=== PATIENT | female | born 1995 | race Caucasian/White ===

== ENCOUNTER 2017-12-16 19:51 | Emergency (ER) | payer MEDICAID ==
[~2017-12-16] VITALS: Ht 157.5 cm; Wt 42.7 kg
[~2017-12-16 19:51] MED LIST: AMOXICILLIN 8751 TAB PO; IBU600 MG PO; MACROBID 1100 MG/CAP PO; NO HOME MEDICATIONS; PRENATAL1 TA7 PO
[2017-12-16 19:55] VITALS: BP 142/87; TEMP 98.4
[2017-12-16] MEDS ORDERED: NORCO 325 MG-51 TAB PO (21:01)
[2017-12-16 21:09] VITALS: PULSE 90
== END 2017-12-16 21:09 | disposition home or self-care (01) ==
LOC: COL.ER 19:51
DX: K08.89 Other specified disorders of teeth and supporting structures (principal); Z87.891 Personal history of nicotine dependence

== ENCOUNTER 2018-03-13 12:41 | Emergency (ER) | payer MEDICAID ==
[~2018-03-13] VITALS: Ht 157.5 cm; Wt 40.9 kg
[~2018-03-13 12:41] MED LIST changes: +NORCO 325 MG-51 TAB PO
[2018-03-13 12:49] VITALS: BP 153/85; PULSE 99; TEMP 98.7
[2018-03-13] MEDS ORDERED: MIRENA52 MG IY (12:51)
[2018-03-13] MEDS ORDERED: DOXYCYCLINE HY100 MG PO (13:24)
== END 2018-03-13 13:34 | disposition home or self-care (01) ==
LOC: COL.ER 12:41
DX: R21 Rash and other nonspecific skin eruption (principal)

== ENCOUNTER 2019-04-10 20:04 | Emergency (ER) | payer MEDICAID ==
[~2019-04-10] VITALS: Ht 157.5 cm; Wt 45.9 kg
[~2019-04-10 20:04] MED LIST changes: +DOXYCYCLINE HY100 MG PO; +MIRENA52 MG IY
[2019-04-10 20:08] VITALS: TEMP 98.8
[2019-04-10 20:34] LABS: BASO # 0.1 (0.0-0.2); BASO % 0.7 % (0.0-2.0); EOS # 0.1 (0.0-0.7); EOS % 0.7 % (0-4.0); GRAN % 61.5 % (42.2-75.2); HEMATOCRIT 39.3 % (37.0-47.0); LYMPH # 2.5 (1.2-3.4); MEAN CELL VOLUME 92 fl (80.0-100.0); MEAN CORPUSCULAR HEMOGLOBIN 30 pg (27.0-31.0); MEAN CORPUSCULAR HGB CONC 33 g/dl (33.0-37.0); MONO # 0.5 (0.1-0.6); MONO % 5.9 % (1.7-9.3); PLATELET COUNT 252 K/mm3 (130-400); RED BLOOD COUNT 4.29 M/mm3 (4.10-5.30); REDCELL DISTRIBUTION WIDTH-CV 12.6 % (11.5-14.5)
[2019-04-10 20:43] LABS: ALANINE AMINOTRANSFERASE 7 U/L (9-52); ALBUMIN 4.5 gm/dL (3.5-5.0); ALKALINE PHOSPHATASE 49 U/L (50-136); ANION GAP 9 mmol/L (7-16); AST,SGOT 20 U/L (15-37); BILIRUBIN,TOTAL 0.4 mg/dL (0.0-1.0); BLOOD UREA NITROGEN 13 mg/dL (7-17); CARBON DIOXIDE 24 mmol/L (22-30); CHLORIDE 107 mmol/L (98-107); CREATININE, serum 0.62 (0.52-1.25); GLUCOSE 84 mg/dL (74-106); POTASSIUM 3.9 mmol/L (3.4-5.0); SODIUM 141 mmol/L (137-145); TOTAL PROTEIN 7.8 gm/dL (6.4-8.2)
[2019-04-10 20:45] LABS: TRICYCLIC ANTIDEPRESS URINE NEGATIVE
[2019-04-10 20:47] LABS: ACETAMINOPHEN < 10 ug/mL (10-30); ALCOHOL(ethanol),MEDICAL < 10 mg/dL; SALICYLATE < 1.0 mg/dL
[2019-04-11 13:45] VITALS: BP 100/66; PULSE 71
== END 2019-04-11 13:51 ==
LOC: COL.ER 20:04
PROVIDERS: Emergency Medicine
DX: F32.9 Major depressive disorder, single episode, unspecified (principal); F17.210 Nicotine dependence, cigarettes, uncomplicated; F41.9 Anxiety disorder, unspecified

== ENCOUNTER 2019-05-10 20:59 | Emergency (ER) | payer MEDICAID ==
[~2019-05-10] VITALS: Ht 157.5 cm; Wt 45.0 kg
[2019-05-10 21:24] VITALS: TEMP 97.8
[2019-05-10 22:02] LABS: COLLECTION METHOD CLEAN CATCH
[2019-05-10 22:06] LABS: BASO # 0.1 (0.0-0.2); BASO % 0.7 % (0.0-2.0); EOS # 0.1 (0.0-0.7); EOS % 0.9 % (0-4.0); GRAN # 7.2 (1.4-6.5); GRAN % 67.2 % (42.2-75.2); HEMATOCRIT 38.8 % (37.0-47.0); HEMOGLOBIN 12.7 g/dl (12.5-16.0); LYMPH # 2.6 (1.2-3.4); LYMPH % 24.2 % (20.0-51.0); MEAN CELL VOLUME 92 fl (80.0-100.0); MEAN CORPUSCULAR HEMOGLOBIN 30 pg (27.0-31.0); MEAN CORPUSCULAR HGB CONC 33 g/dl (33.0-37.0); MONO # 0.7 (0.1-0.6); MONO % 6.6 % (1.7-9.3); PLATELET COUNT 270 K/mm3 (130-400); REDCELL DISTRIBUTION WIDTH-CV 12.6 % (11.5-14.5)
[2019-05-10 22:10] LABS: MUCOUS Present /lpf; PH 6 (5-8); URINE APPEARANCE Cloudy; URINE BACTERIA None Seen /hpf; URINE BILIRUBIN Negative (NEGATIVE); URINE BLOOD Negative (NEGATIVE); URINE CALCIUM OXALATE CRYSTAL Present /hpf; URINE COLOR Amber; URINE GLUCOSE Negative (NEGATIVE); URINE KETONE Trace (NEGATIVE); URINE LEUKOCYTE ESTERASE Trace (NEGATIVE); URINE NITRATE Negative (NEGATIVE); URINE PROTEIN(semi-quant) 1+ (NEGATIVE); URINE UROBILINOGEN >=4.0 mg/dL (NEGATIVE)
[2019-05-10 22:17] LABS: TRICYCLIC ANTIDEPRESS URINE NEGATIVE
[2019-05-10 22:19] LABS: ACETAMINOPHEN < 10 ug/mL (10-30); ALANINE AMINOTRANSFERASE 15 U/L (9-52); ALCOHOL(ethanol),MEDICAL < 10 mg/dL; ALKALINE PHOSPHATASE 47 U/L (50-136); ANION GAP 9 mmol/L (7-16); AST,SGOT 19 U/L (15-37); BILIRUBIN,TOTAL 0.1 mg/dL (0.0-1.0); BLOOD UREA NITROGEN 13 mg/dL (7-17); CALCIUM 8.8 mg/dL (8.4-10.2); CARBON DIOXIDE 27 mmol/L (22-30); CHLORIDE 105 mmol/L (98-107); CREATININE, serum 0.66 (0.52-1.25); GLUCOSE 107 mg/dL (74-106); POTASSIUM 3.5 mmol/L (3.4-5.0); SALICYLATE < 1.0 mg/dL; SODIUM 140 mmol/L (137-145); TOTAL PROTEIN 7.1 gm/dL (6.4-8.2)
[2019-05-11] MEDS ORDERED: CIPRO 500MG TA500 MG PO (01:15)
[2019-05-11 01:20] VITALS: BP 120/80; PULSE 75
== END 2019-05-11 01:25 | disposition home or self-care (01) ==
LOC: COL.ER 20:59
PROVIDERS: Family Medicine
DX: R45.851 Suicidal ideations (principal); F19.10 Other psychoactive substance abuse, uncomplicated